=== PATIENT | female | born 1960 | race Two or more races ===

== ENCOUNTER → 2024-09-04 | Outpatient (CLI) | payer MEDICAID, SELFPAY ==
--- NOTE | 2024-09-04 16:00 | XR_ITS ---
Examination: CT chest, without intravenous contrast. Sagittal and coronal 2-D reconstructions. Exam date and time: September 04, 2024 1621 hours Indications coughing beginning May 2024 CTDI:vol (mGy) 15.4 DLP: (mGycm) 541 Technique: Multiple 3.0 mm axial sections of the chest to been obtained. Bone and lung density settings are obtained. Sagittal and coronal 2-D reconstructions have been obtained. Low dose protocols were performed. One or more of the following dose reduction techniques were used; automated exposure control, adjustment of the mA and/or KV according to patient size, use of iterative reconstruction technique. Findings: No thoracic aortic aneurysm dilatation Pulmonary artery segments are not enlarged No paratracheal tracheobronchial or bronchopulmonary adenopathy 5 mm pulmonary nodule left lower lobe No lobar pneumonia or pulmonary edema No focal liver or splenic lesions No gallstones No pancreatic or adrenal mass Left parapelvic cysts versus mild left hydronephrosis IMPRESSION: 5 mm pulmonary nodule left lower lobe, with this study as baseline recommend 6 month follow-up CT chest without contrast Recommend renal sonography to exclude left hydronephrosis
== END | disposition home or self-care (01) ==
PROVIDERS: PCP Physician Assistant; Referring Provider Physician Assistant; Visit Provider Physician Assistant
DX: R91.1 Solitary pulmonary nodule (principal)
CPT/HCPCS: 71250

== ENCOUNTER 2024-09-21 13:17 | Emergency (ER) | payer MEDICAID, SELFPAY ==
[2024-09-21 13:18] VITALS: BMI 40.3
--- NOTE | 2024-09-21 13:21 | EKG_ITS ---
[facility] Test Date: 2024-09-21 Pat Name: KP CHENG Department: Room: - Gender: Female Sales Developer: : 1960 Requested By: ED Temporary Provider Order Number: [id number] Reading MD: ED Temporary Provider Measurements Intervals [place] Rate: 109 P: MI: QRS: 4 QRSD: 88 T: 27 QT: 332 QTc: 449 Interpretive Statements ATRIAL FIBRILLATION WITH RAPID VENTRICULAR RESPONSE POSSIBLE ANTERIOR MYOCARDIAL INFARCTION , PROBABLY OLD [30 ms Q WAVE IN V3/V4, OR R < 0.2 mV IN V4] ABNORMAL RHYTHM ECG No previous ECG available for comparison /store/S0/[id number]/ecg/[id number].pdf
[2024-09-21 14:07] VITALS: BP 124/91; PULSE 120; RESP 18; TEMP 36.9; O2SAT 95
--- NOTE | 2024-09-21 14:07 | XR_ITS ---
Examination: PA lateral chest 2 views TECHNIQUE: Upright PA lateral chest 2 views Exam date and time: September 21, 2024 1440 hours INDICATIONS: Coughing beginning 3 months ago. FINDINGS: Subtle bilateral nodular parenchymal opacities Mild prominence left ventricle Osseous structures are intact IMPRESSION: Subtle bilateral nodular opacities most consistent with pneumonia, follow-up chest imaging recommended
--- NOTE | 2024-09-21 14:13 | PD.EDRME ---
Rapid Medical Screening Exam RME Arrival date/time: 09/21/24 13:17 64yr old female presents to the emergency department today stating she went to primary care doctor today and was found to have elevated heart rate patient has new onset A-fib Chief Complaint: Arrhythmia/Palpitations Vital signs: Vital Signs Temperature 98.5 F 09/21/24 14:07 Pulse Rate 120 H 09/21/24 14:07 Respiratory Rate 18 09/21/24 14:07 Blood Pressure 124/91 H 09/21/24 14:07 Pulse Oximetry (%) 95 09/21/24 14:07 Oxygen Delivery Method Room Air 09/21/24 14:07
[2024-09-21 14:32] VITALS: PULSE 122
--- NOTE | 2024-09-21 14:36 | PD.EDARRY ---
ED Arrhythmia Palp. RME/HPI General Chief Complaint: Arrhythmia/Palpitations Stated Complaint: FAST HEART RATE Time Seen by Provider: 09/21/24 14:32 Arrival date/time: 09/21/24 13:17 RME / HPI RME / HPI narrative: 09/21/24 13:17 64yr old female presents to the emergency department today stating she went to primary care doctor today and was found to have elevated heart rate patient has new onset A-fib DR. SAMPSON MAIN ED EVALUATION: 64 year old female with past medical history significant for hypertension, hypercholesterolemia, and hyperthyroidism presents to the Emergency Department sent by PCP for an abnormal EKG, new onset of atrial fibrillation. Patient does report having palpitations and intermittent shortness of breath onset 1 week. She also reports diffuse little back pain. She was started on a water pill by her PCP for fluid overload, fluid in her lungs and bilateral lower extremities. She states she is in the process of getting a oil bay technician but still working on the referral with her PCP. Denies chest pain or other symptoms at this time. No blood thinners. Related Data Home Medications ?Medication ?Instructions ?Recorded ?Confirmed Benazepril Hcl 20 mg PO QDAY ##30 06/23/15 CHOLECALCIFEROL (VITAMIN D3) 1,000 mg PO QDAY ##60 06/23/15 (VITAMIN D3) Previous Rx's ?Medication ?Instructions ?Recorded hydrocodone 5 mg-acetaminophen 325 1 tab PO TID PRN pain #20 tabs 08/04/22 mg tablet apixaban 5 mg tablet (Eliquis) 5 mg PO BID #60 tabs 09/21/24 Allergies Allergy/AdvReac Type Severity Reaction Status Date / Time No Known Allergies Allergy Verified 09/21/24 13:17 Review of Systems Review of Systems Systems Reviewed: All systems reviewed, normal except as documented Narrative Review of Systems: GEN: No fever, no chills, no weight loss EYES: No discharge, no visual changes, no pain HEENT: No ear pain, no congestion, no sore throat PULM: + intermittent shortness of breath, no cough, no congestion CV: No chest pain, no dyspnea on exertion, + palpitations GI: No nausea, no vomiting, no diarrhea, no pain, no constipation : No frequency, no urgency and no dysuria MUSC/SKEL: No joint pain, + diffuse little back pain SKIN: No rash PSYCH: No hallucinations, no depression HEME/LYMPH: No easy bleeding or bruising tendencies NEURO: No weakness, no headache Past Medical History Past Medical History CARDIAC: Positive Hypercholesterolemia and Hypertension Social History SMOKING STATUS: Never smoker SUBSTANCE USE: does not use ALCOHOL: Never ED Exam Narrative Physical exam: GENERAL APPEARANCE: alert and oriented x 4, well-developed, well-nourished, no acute distress VITALS: All vitals were reviewed and the pulse ox is 95% on room air, which is normal according to my interpretation. HEENT: Normocephalic, atraumatic; pupils equal, round, reactive to light; EOMI; mucous membranes pink, moist; oropharynx clear NECK: Supple LUNGS: CTABL; no wheezes, no rales, no rhonchi HEART: Regular tachycardic, irregularly irregular. ABDOMEN: non distended; normal BS; soft, no tenderness, no guarding, no rebound; no masses, no organomegaly, no hernia BACK: no CVA tenderness EXTREMITIES: atraumatic; there is 2+ pitting edema of bilateral lower extremities NEUROLOGIC: awake; alert and oriented x4; cranial nerves II-XII grossly intact; no focal sensory or motor deficits PSYCHIATRIC: appropriate mood and affect SKIN: warm, dry, normal color; no rashes Course Quality Measures none Orders Category Date Time Status Marketing Data Specialist NOW Care 09/21/24 14:07 Active EKG (ED ONLY) *Do not use* NOW Care 09/21/24 13:21 Completed EKG (ED Only) Stat Exams 09/21/24 13:21 Draft XR chest 2V Stat Exams 09/21/24 14:07 Ordered BNP [B-Type Natriuretic Peptide] Stat Lab 09/21/24 14:07 Ordered CBC Stat Lab 09/21/24 14:07 Ordered Comprehensive Metabolic Panel Stat Lab 09/21/24 14:07 Ordered Troponin I Stat Lab 09/21/24 14:07 Ordered Vital Signs Vital signs: Vital Signs Temperature 98.5 F 09/21/24 14:07 Pulse Rate 120 H 09/21/24 14:07 Respiratory Rate 18 09/21/24 14:07 Blood Pressure 124/91 H 09/21/24 14:07 Pulse Oximetry (%) 95 09/21/24 14:07 Oxygen Delivery Method Room Air 09/21/24 14:07 Procedures -ED EKG Interpretation #1: Date of EK09/21/24 Time of EK:09 Rate: 109 Interpretation: Interpreted by me Additional EKG comment: atrial fibrillation, rate 109, no acute ischemic changes Arrhythmia/Palpitations MDM Narrative [facility] Narrative:: IJosefina, am scribing for and in the presence of Dr. Sampson. Patient data External records reviewed:: [facility] previous records (Reviewed physical therapy note dated 03/02/23.) Clinical information provided by:: patient Social determinants that could affect healthcare access:: none Patient has the following chronic illnesses:: hypertension, hypercholesterolemia, and hyperthyroidism How is presenting disease/condition affected by chronic disease/condition?: exacerbated by Evaluation data The following diagnostics were reviewed and interpreted by me:: lab results, radiology exam(s) and EKG tracing(s) (EKG#1: EKG at 1409 hours. Interpreted by me: atrial fibrillation, rate 109, no acute ischemic changes) Lab and/or radiology exams considered but not ordered:: none Interpretation Summary: Procedure(s): XR chest 2V Accession Number(s): [id number] cc: Angela (NATE),Sly PHOTOVOLTAIC PANEL INSTALLER; Yfn Mchugh MD~ Examination: PA lateral chest 2 views TECHNIQUE: Upright PA lateral chest 2 views Exam date and time: September 21, 2024 1440 hours INDICATIONS: Coughing beginning 3 months ago. FINDINGS: Subtle bilateral nodular parenchymal opacities Mild prominence left ventricle Osseous structures are intact IMPRESSION: Subtle bilateral nodular opacities most consistent with pneumonia, follow-up chest imaging recommended Dictated By: Yfn Mchugh MD Medications / Prescriptions Medications or Prescriptions considered but not ordered:: none Medication administrations:: see above if any Consultations Consultation(s) initiated? (list below): Yes Consultation #1 (Physician, Specialty, Details): Discussed test HPI, PMHx, lab, radiology results and/or management with Dr. Spence. States patient has new onset atrial fibrillation and recommends starting the patient on Eliquis and follow-up as an outpatient. Dr. Spence states to call on Tuesday for an appointment and he will see her. Time: 16:56 Diagnosis Differential diagnosis arrhythmia/palpitations: palpitations, anxiety, sinus tachycardia, artial fibrillation and artial flutter Most likely diagnosis given after review of the tests above:: Atrial fibrillation Palpitations Admission Indicated Admission indicated?: not indicated Admission Request Was there a request for admission?: No Disposition Plan Disposition Plan: Discharge Discharge Attestation Discharge Attestation: The patient and all family members were given an opportunity to ask questions and understood the discharge instructions. Discharge instructions specifically effects, indications for sooner follow up or return to the emergency department, and the expected course of current diagnosis. Patient condition: Stable Discharge Plan Plan Patient Disposition: HOME (Self Care) Prescriptions/Referrals Prescriptions/Med Rec: New Eliquis 5 mg tablet 5 mg PO BID Qty: 60 0RF No Action Benazepril Hcl 20 MG tablet 20 mg PO QDAY Qty: 30 CHOLECALCIFEROL (VITAMIN D3) (VITAMIN D3) 1,000 UNIT tablet 1,000 mg PO QDAY Qty: 60 hydrocodone-acetaminophen 5-325 mg tablet 1 tab PO TID MDD 3 PRN (Reason: pain) Qty: 20 0RF Referrals: Gilmar Spence MD [Physician] - 09/24/24 Dana Benedict PA-C [Primary Care Provider] - In 1 week Problem List Clinical Impression: Atrial fibrillation, Palpitations Patient/Caregiver Discharge Instructions Education Materials: ED Atrial Fibrillation Additional Instructions: Follow up with Dr. Spence, cardiology, on Tuesday09/24/24. Call office for appointment time. Print Language: Kiswahili Stand Alone Forms: Arleen Award Info., Patient Portal Info Letter
[2024-09-21 14:56] LABS: Basophils # (Auto) 0.1 Thou/mm3 (0.0-0.2); Basophils % (Auto) 1 % (0-2.5); Eosinophils # (Auto) 0.2 Thou/mm3 (0.0-0.5); Eosinophils % (Auto) 2 % (0-10); Hematocrit 40.8 % (36.0-46.0); Hemoglobin 12.7 g/dL (12.0-16.0); Immature Granulocytes % (Auto) 1 % (0-0); Immature Granulocytes Auto 0.05 Thou/mm3 (0.00-0.00); Lymphocytes # (Auto) 1.3 Thou/mm3 (1.0-4.8); Lymphocytes % (Auto) 14 % (10-50); Mean Corpuscular HGB Conc 31.1 g/dl (31.0-37.0); Mean Corpuscular Hemoglobin 24.2 pg (25.0-35.0); Mean Corpuscular Volume 78 fL (80-100); Monocytes # (Auto) 0.6 Thou/mm3 (0.0-0.8); Monocytes % (Auto) 7 % (0-12); Neutrophils # (Auto) 7.4 Thou/mm3 (1.8-7.7); Neutrophils % (Auto) 77 % (37-80); Nucleated Red Blood Cell % 0 /100 WBC (0); Platelet Count 199 Thou/mm3 (140-440); RDW Standard Deviation 42.7 fL (36.4-46.3); Red Blood Count 5.25 Miln/mm3 (4.00-5.20); White Blood Count 9.6 Thou/mm3 (3.6-11.0)
[2024-09-21 15:31] LABS: Alanine Aminotransferase 15 U/L (10-49); Albumin, Serum 4.2 gm/dL (3.4-4.8); Albumin/Globulin Ratio 1.4 (1.2-2.2); Alkaline Phosphatase 92 U/L (46-116); Anion Gap 8 (7-16); Aspartate Amino Transferase 22 U/L (0-34); BUN/Creatinine Ratio 15 Ratio (12-20); Bilirubin,Total 1.7 mg/dL (0.3-1.2); Blood Urea Nitrogen 15 mg/dL (9-23); Calcium 9.4 mg/dL (8.3-10.6); Calcium (Corrected) 9.4 mg/dL (8.5-10.1); Carbon Dioxide 27.3 mMol/L (20.0-31.0); Chloride 107 mMol/L (98-107); Estimated Creatinine Clearance 67.7 mL/min (>60); Glucose 99 mg/dL (74-106); Osmolality,Calculated 283 (275-295); Sodium 142 mMol/L (136-145); Total Protein 7.2 gm/dL (5.7-8.2); Troponin I < 0.020 ng/mL (0.0-0.045); eGFR > 60 See Note
[2024-09-21 15:39] LABS: B-Type Natriuretic Peptide 88 pg/mL (0-100)
[2024-09-21 15:47] VITALS: BP 127/97; PULSE 99; RESP 22; TEMP 37; O2SAT 92
[2024-09-21 18:03] VITALS: PULSE 98; RESP 24; TEMP 36.8; O2SAT 94
== END 2024-09-21 18:06 | disposition home or self-care (01) ==
PROVIDERS: Nurse Practitioner Primary Care; Emergency Provider Emergency Medicine; PCP Physician Assistant
DX: I48.91 Unspecified atrial fibrillation (principal); R91.1 Solitary pulmonary nodule; Z79.01 Long term (current) use of anticoagulants
CPT/HCPCS: 36415; 71046; 80053; 83880; 84484; 85025; 93005; 99283

== ENCOUNTER → 2024-09-28 | Outpatient (CLI) | payer MEDICAID, SELFPAY ==
--- NOTE | 2024-09-28 15:00 | XR_ITS ---
Examination: Retroperitoneal ultrasound, complete Technique: Multiple high resolution grayscale images of the retroperitoneum obtained, including kidneys and bladder. Exam date and time:September 28, 2024 at 1510 hrs. Indications: History acquired renal cystic disease Findings: Right kidney 11.6 cm cortex 2.0 cm Left kidney 11.2 cm renal cortex 1.6 cm [place] left renal cyst 14 mm Moderate renal parenchymal scar formation Mild left hydronephrosis Contracted urinary bladder, oblique and 41 cc Impression: Moderate bilateral renal parenchymal scar formation Mild left hydronephrosis
== END | disposition home or self-care (01) ==
LOC: CDIM 14:53
PROVIDERS: PCP Physician Assistant; Referring Provider Physician Assistant; Visit Provider Physician Assistant
DX: N28.89 Other specified disorders of kidney and ureter (principal); N13.30 Unspecified hydronephrosis
CPT/HCPCS: 76770

== ENCOUNTER → 2024-12-21 | Outpatient (CLI) | payer MEDICAID, SELFPAY ==
--- NOTE | 2024-12-21 10:53 | XR_ITS ---
Examination: PA lateral chest 2 views TECHNIQUE: Upright PA lateral chest 2 views Date and time: December 21, 2024 1223 hours Comparison September 21, 2024 INDICATIONS: Chronic shortness of breath bronchitis diagnosis 6 months FINDINGS: Mild to moderate enlargement cardiac contour Mild pulmonary vascular redistribution. No lobar pneumonia or pulmonary edema IMPRESSION: Mild to moderate enlargement cardiac contour Mild pulmonary vascular redistribution
== END | disposition home or self-care (01) ==
PROVIDERS: PCP Physician Assistant; Referring Provider Internal Medicine; Visit Provider Internal Medicine
DX: I51.7 Cardiomegaly (principal); R05.3 Chronic cough
CPT/HCPCS: 71046